=== PATIENT | female | born 1940 | race Two or more races ===

== ENCOUNTER 2018-01-21 09:32 | Outpatient (CLI) | payer OTHER ==
[~2018-01-21 09:32] MED LIST: HYZAAR 100/25 T1 TAB; METFORMIN HCL500 MG; PLAVIX75 MG
== END 2018-01-21 09:40 | disposition home or self-care (01) ==
LOC: RAD 501 09:32
DX: M25.561 Pain in right knee (principal); M25.562 Pain in left knee

== ENCOUNTER 2023-07-15 12:05 | Outpatient (CLI) | payer OTHER | END 2023-07-15 12:19 | disposition home or self-care (01) | LOC: RAD 12:05 | PROVIDERS: ATTEND Orthopaedic Surgery | DX: M25.561 Pain in right knee (principal) ==